=== PATIENT | male | born 1950 | race African-American/Black ===

== ENCOUNTER 2019-04-05 12:56 | Inpatient (IN) ==
[2019-04-05] MEDS ORDERED: GEODON IM ONE (13:09)
[2019-04-05] MEDS ORDERED: ATIVAN IM ONE (13:09)
[2019-04-05] MEDS ORDERED: BENADRYL IM ONE (13:09)
[2019-04-05] MEDS ORDERED: STERILE WATER INJ. INJ ONE (13:09)
[2019-04-05] MEDS ORDERED: NS 1,000 ML IV ONE (13:12)
[2019-04-05] MEDS ORDERED: VANCOMYCIN 1 GM/NS 1 GM/250 ML IVPB IV ONE (13:12)
[2019-04-05] MEDS ORDERED: LASIX IV ONE (13:12)
[2019-04-05] MEDS ORDERED: CLINDAMYCIN 900 MG/NS 900 MG/50 ML IVPB IV ONE (13:20)
[2019-04-05] MEDS ORDERED: CLINDAMYCIN 900 MG/D5W 900 MG/50 ML IVPB IV ONE (14:00)
[2019-04-05 14:26] LABS: BASO# 0.04 X1000 (0.0-0.2); BASO% 0.5 % (0.0-0.8); EOS# 0.25 X1000 (0.0-0.7); EOS% 2.9 % (0.0-10.0); HEMATOCRIT 41.7 % (42.0-52.0); HEMOGLOBIN 14.2 g/dL (14.0-18.0); IMM GRAN# 0.02 X1000 (0.0-0.04); IMM GRAN% 0.2 % (0.0-0.5); LYMPH# 1.87 X1000 (1.2-3.4); LYMPH% 21.5 % (20.5-51.1); MCH 27.7 PG (27-31); MCHC 34.1 g/dL (33-37); MCV 81.3 FL (81-99); MONO# 0.79 X1000 (0.11-0.59); MONO% 9.1 % (1.7-9.3); MPV 9.8 FL (7.4-10.4); NEUT# 5.74 X1000 (1.4-6.5); NEUT% 65.8 % (42.2-75.2); PLT 363 X1000 (130-400); RBC 5.13 XMIL (4.7-6.1); RDW 14.5 % (11.5-14.5); WBC 8.71 X1000 (4.8-10.8)
[2019-04-05 14:31] LABS: INR 1.07; PROTIME 14.4 Seconds (11.0-16.0)
--- NOTE | 2019-04-05 14:37 | Diag Imaging Result Doc PS360 ---
EXAM: CHEST-PORTABLE 04/05/2019 HISTORY: tachycardic TECHNIQUE: AP portable at 1440 COMMENT: The inspiration is less optimal than on 04/04/2019 at 1153. Considering this there has been no significant change. IMPRESSION: Poor inspiration. Electronically signed by Reji Howell 04/05/2019 2:35 PM
[2019-04-05 15:05] LABS: AGAP 12; ALBUMIN 3.8 g/dL (3.5-5.0); ALKALINE PHOSPHATASE 76 U/L (32-122); BUN 15 mg/dL (8-22); CALCIUM 8.9 mg/dL (8.8-10.2); CHLORIDE 100 mmol/L (98-107); COSMO 279; ESTIMATED GFR > 60; GLUCOSE 109 mg/dL (70-104); GOT 52 U/L (10-34); GPT 47 U/L (10-44); MAGNESIUM 1.9 mg/dL (1.5-2.7); POTASSIUM 3.9 mmol/L (3.5-5.1); SODIUM 139 mmol/L (136-145); TCO2 27 mmol/L (25-35); TOTAL PROTEIN 6.6 g/dL (6.3-8.3)
[2019-04-05 15:15] LABS: CK PROFILE 955 U/L (24-204)
[2019-04-05] MEDS ORDERED: TYLENOL PO PRN (15:16)
[2019-04-05] MEDS ORDERED: ZOFRAN IV PRN (15:16)
--- NOTE | 2019-04-05 15:16 | PROVIDER DOCUMENTATION ---
This chart was entered by Airam Melchor Scribe, acting as scribe for Soham Cleary MD. HPI-Psychological Disorder <Pamela BarraganJaylin - Last Filed: 04/05/19 13:51> - General Source: patient, family, EMS - History of Present Illness-Psych Onset/Duration: reports: 24 hours ago Timing: reports: still present Severity: reports: moderate Situational problems related to:: reports: N/A Psychiatric Complaints: reports: agitated, restlessness Substance Use: reports: none/never Previous psych related hospitalizations?: No Patient arrived by:: EMS called by spouse/family Similar Symptoms Previously?: Yes Recently seen or treated by another doctor?: No <Soham Cleary - Last Filed: 04/05/19 15:16> - General Chief Complaint: Edema Stated Complaint: psych/bee sting Time Seen by Provider: 04/05/19 13:09 Allergies/Adverse Reactions: Patient Allergies Allergy/AdvReac Type Severity Reaction Status Date / Time No Known Allergies Allergy Verified 04/04/19 11:16 - History of Present Illness-Psych Nature of Presenting Problem: 68 y/o male presents to ED with fredy and bilateral lower extremity edema onset yesterday. Pt reports he was stung by bees. EMS states he was evicted from his hotel room just prior to arrival. Pt is alert and oriented. (Soham Cleary) Review of Systems - Adult - REVIEW OF SYSTEMS - ADULT Constitutional: denies: chills, fever Eyes: reports: no symptoms reported Ears, Nose, Mouth & Throat: reports: no symptoms reported Cardiovascular: denies: chest pain, palpitations Respiratory: denies: cough, shortness of breath Gastrointestinal: denies: abdominal pain, diarrhea, nausea, vomiting Genitourinary: reports: no symptoms reported Musculoskeletal: reports: other (bilateral lower extremity edema). denies: back pain, joint pain Integumentary: reports: no symptoms reported Neurological: denies: dizziness/vertigo, seizure Psychiatric: reports: other (restless; manic). denies: suicidal thoughts Endocrine: reports: no symptoms reported Hematologic/Lymphatic: reports: no symptoms reported Allergic/Immunologic: reports: no symptoms reported All Other Systems: Reviewed and Negative <Soham Cleary - Last Filed: 04/05/19 15:16> Past History - Adult - PAST MEDICAL HISTORY-ADULT Review of Records: reports: Old Records Reviewed, Nursing Assessment Review, Medications Reviewed Major Childhood Illnesses: reports: denies history Cardiovascular: reports: HTN Psychiatric: reports: bipolar - PRIOR SURGERIES/PROCEDURES Surgical/Procedure History: reports: none - IMMUNIZATION STATUS Childhood Immunizations: See Nurse Assessment Flu Vaccine: See Nurse Assessment - FAMILY HISTORY Family History: reviewed, not pertinent - SOCIAL HISTORY Smoking: non-smoker Substance Use: none/never Alcohol Use Frequency: never Living Situation: alone <Soham Cleary - Last Filed: 04/05/19 15:16> Physical Exam-Psych Focus - Physical Exam-Psych Initial Vital Signs Reviewed: Yes Appearance: appropriate appearance, neat, no apparent distress, no memory impairment, alert, other (restless; manic; labile behavior) Neurological: alert, padded box sewer II-XII nml as tested, oriented x 3, other (restless; manic; labile behavior) Behavior/Eye Contact/Speech: good eye contact, increased rate of speech, other (restless; manic; labile behavior) Thoughts/Hallucinations: normal thought pattern, delusions, flight of ideas, paranoid HENMT: normocephalic/atraumatic, moist mucous membranes, normal ENT inspection Neck: non-tender, full range of motion Respiratory: chest non-tender, lungs clear, normal breath sounds Cardiovascular: tachycardia Abdominal Exam: normal bowel sounds, non tender, soft, hernia (umbilical) Back Exam: normal inspection, no CVA tenderness Extremity: normal range of motion, normal gait, erythema (bilateral lower extremities), swelling (3-4+ edema of bilateral lower extremities), tenderness (bilateral lower extremities), other (blisters to bilateral lower extremities) Integumentary: normal color, warm/dry, erythema (bilateral lower extremities), swelling (3-4+ edema of bilateral lower extremities), tenderness (bilateral lower extremities), other (blisters to bilateral lower extremities) <Soham Cleary - Last Filed: 04/05/19 15:16> Progress - REASSESSMENT Reassessment #1 Time Reassessed: 13:51 (evaluated at bedside. pt has flight of ideas, tangental thoughts, talkative. pt AOx3, however incooperative and screaming at times. HR tachycardic, and lower legs b/l pitting edema with severe skin cellulitis. pt needs inpatient medical floor and additional psych evaluation and managemetn for his fredy. ) <Pamela Barragan - Last Filed: 04/05/19 13:51> - PLAN OF CARE/RESULTS Result Diagrams: 04/05/19 13:53 04/05/19 13:53 - REASSESSMENT Reassessment #2 Time Reassessed: 15:15 Status: improving (resting, sedated. Family states they are applying for greens tier ordered probate tomorrow.) - PSYCHIATRIC Medically clear for psych eval and/or transfer to [facility] No (Will need IV abx for cellulitis prior to psych transfer) - XRAY 1 XRAY Study: Chest Impression: Abnormal (COMMENT: The inspiration is less optimal than on 04/04/2019 at 1153. Considering this there has been no significant change. IMP RESSION: Poor inspiration. Electronically signed by Reji Howell 04/05/2019 2:35 PM) - CONSULTS/PCP/HOSPITALIST Notification #1 *Consult/PCP/Hospitalist*: Dr. Dietz Time Discussed: 15:14 Reason/Comments: Cellulitis of bilateral lower extremities Consult Disposition: Admit <Soham Cleary - Last Filed: 04/05/19 15:16> - PLAN OF CARE/RESULTS Progress/Plan/Lab Results: Vital Signs - 8 hr 04/05/19 12:51 04/05/19 14:30 Temperature 98.4 F Pulse Rate 103 H 108 H Respiratory Rate 20 18 Blood Pressure 163/102 131/100 O2 Sat by Pulse Oximetry 97 94 L Laboratory Results - last 24 hr 04/05/19 04/05/19 04/05/19 13:53 13:53 13:53 WBC 8.71 RBC 5.13 Hgb 14.2 Hct 41.7 L MCV 81.3 MCH 27.7 MCHC 34.1 RDW Std Deviation 14.5 Plt Count 363 MPV 9.8 Immature Gran % (Auto) 0.2 Neut % (Auto) 65.8 Lymph % (Auto) 21.5 Eaton % (Auto) 9.1 Eos % (Auto) 2.9 Baso % (Auto) 0.5 Immature Gran # (Auto) 0.02 Neut # (Auto) 5.74 Lymph # (Auto) 1.87 Eaton # (Auto) 0.79 H Eos # (Auto) 0.25 Baso # (Auto) 0.04 PT INR Sodium 139 Potassium 3.9 Chloride 100 Carbon Dioxide 27 Anion Gap 12 BUN 15 Creatinine 1.0 Estimated GFR/1.73 m2 > 60 BUN/Creatinine Ratio 15 Glucose 109 H Calculated Osmolality 279 Calcium 8.9 Magnesium 1.9 Total Bilirubin 0.80 AST 52 H ALT 47 H Alkaline Phosphatase 76 Creatine Kinase 955 H Troponin T Total Protein 6.6 Albumin 3.8 Globulin 3.0 Albumin/Globulin Ratio 1.0 Plasma Lactate Plasma/Serum Ethyl Alc 04/05/19 04/05/19 04/05/19 13:53 13:53 13:53 WBC RBC Hgb Hct MCV MCH MCHC RDW Std Deviation Plt Count MPV Immature Gran % (Auto) Neut % (Auto) Lymph % (Auto) Eaton % (Auto) Eos % (Auto) Baso % (Auto) Immature Gran # (Auto) Neut # (Auto) Lymph # (Auto) Eaton # (Auto) Eos # (Auto) Baso # (Auto) PT 14.4 INR 1.07 Sodium Potassium Chloride Carbon Dioxide Anion Gap BUN Creatinine Estimated GFR/1.73 m2 BUN/Creatinine Ratio Glucose Calculated Osmolality Calcium Magnesium Total Bilirubin AST ALT Alkaline Phosphatase Creatine Kinase Troponin T 0.018 Total Protein Albumin Globulin Albumin/Globulin Ratio Plasma Lactate 1.6 Plasma/Serum Ethyl Alc Orders Category Date Time Status Finger Stick Blood Sugar (ED) DIRECTED Care 04/05/19 13:10 Active Nursing- Obtain EKG once Care 04/05/19 13:10 Active Saline Loc NOW Care 04/05/19 13:10 Active CHEST-PORTABLE [RAD] Stat Exams 04/05/19 13:11 Completed ALCOHOL BLOOD Stat Lab 04/05/19 13:53 Completed BLOOD CULTURE [BLDCUL] Stat Lab 04/05/19 13:10 Ordered CBC WITH ELECTRONIC DIFF [HEME] Stat Lab 04/05/19 13:53 Results CK PROFILE [SP CHEM] Stat Lab 04/05/19 13:53 Results COMPREHENSIVE METABOLIC PANEL [CHEM] Stat Lab 04/05/19 13:53 Results LACTATE, PLASMA [CHEM] Stat Lab 04/05/19 13:53 Completed MAGNESIUM [CHEM] Stat Lab 04/05/19 13:53 Results PRO B-NATRIURETIC PEPTIDE Stat Lab 04/05/19 13:53 Received PROTIME WITH INR [COAG] Stat Lab 04/05/19 13:53 Completed SED RATE [HEME] Stat Lab 04/05/19 13:53 Results TROPONIN T Stat Lab 04/05/19 13:53 Completed TSH Stat Lab 04/05/19 13:[address] W/POSS RFLX CULT [URINALYSIS] Stat Lab 04/05/19 14:55 Received URINE DRUG SCREEN PL Stat Lab 04/05/19 14:55 Received 0.9% Sodium Chloride Inj [Ns] 1,000 ml Med 04/05/19 13:12 Discontinued IV 999 mls/hr Clindamycin 900 mg/D5w Med 04/05/19 14:00 Discontinued 900 mg in 50 ml IV NOW Diphenhydramine [Benadryl] Med 04/05/19 13:09 Discontinued 50 mg IM NOW ONE Furosemide [Lasix] Med 04/05/19 13:12 Discontinued 40 mg IV NOW ONE Lorazepam [Ativan] Med 04/05/19 13:09 Discontinued 2 mg IM NOW ONE Vancomycin 1 gm/Ns Med 04/05/19 13:12 Discontinued 1 gm in 250 ml IV NOW Water, Sterile Inj [Sterile Water Inj] Med 04/05/19 13:09 Discontinued 1.2 ml INJ NOW ONE Ziprasidone [Geodon] Med 04/05/19 13:09 Discontinued 20 mg IM NOW ONE EKG [EKG] Stat Ther 04/05/19 13:10 Ordered - PSYCHIATRIC Psych patient progress: Patient's judgement is definitely impaired, he is manic, and has not slept in days. I will hold him against his will at the advisement of his family who request psychiatric stabilization prior to discharge. I have asked Dr. Barragan to see patient for 2 doctor hold until cleared by psychiatry. (Soham Cleary) Departure <Pamela Barragan - Last Filed: 04/05/19 13:51> - Departure Date of Disposition Decision: 04/05/19 Time of Disposition Decision: 15:14 Certified Medical Emergency: Emergent - Critical Care Note This patient required my direct & personal management of CC.: No <Soham Cleary - Last Filed: 04/05/19 15:16> - Departure DIAGNOSIS: Cellulitis of both feet, Bipolar affective, manic, severe w/ psych, Pedal edema Disposition: ADMITTED INPATIENT 09 Condition: Fair Attestation - Physician/ ABRAHAM Attestation Patient care was provided by Advanced Practice Provider:: No The physician spent face to face time with patient:: Yes Advanced Practice Provider documentation review:: Supervising physician onsite and consulted in the evaluation and care of this patient. The physician did have a face to face encounter with the patient. <Soham Cleary - Last Filed: 04/05/19 15:16> This chart was documented by the indicated scribe, (Airam Melchor Scribe) and accurately reflects the services I performed and decisions made by Evin handy Kent A., MD, as attested by the provider's signature.
[2019-04-05 15:20] LABS: BILIRUBIN URINE NEGATIVE (NEGATIVE); BLOOD URINE 4+ (NEGATIVE); CLARITY SL. CLOUDY (CLEAR); COLOR YELLOW; GLUCOSE URINE NEGATIVE (NEGATIVE); KETONE URINE NEGATIVE (NEGATIVE); LEUKOCYTES URINE NEGATIVE (NEGATIVE); NITRITE URINE NEGATIVE (NEGATIVE); PROTEIN URINE NEGATIVE (NEGATIVE); UROBILINOGEN URINE NORMAL
[2019-04-05 15:26] LABS: URINE RBC TNTC /HPF (<10); URINE SOURCE CATH
[2019-04-05 15:28] LABS: UR AMPHETAMINES QUAL NONE DETECTED (NONE DETECT); UR BARBITUATES QUAL NONE DETECTED (NONE DETECT); UR BENZODIAZEPIN QUAL NONE DETECTED (NONE DETECT); UR CANNABINOIDS QUAL NONE DETECTED (NONE DETECT); UR COCAINE QUAL NONE DETECTED (NONE DETECT); UR METHADONE QUAL NONE DETECTED (NONE DETECT); UR METHAMPHETAMINE QUAL NONE DETECTED (NONE DETECT); UR OPIATES QUAL NONE DETECTED (NONE DETECT); UR OXYCODONE QUAL NONE DETECTED (NONE DETECT); UR PCP QUAL NONE DETECTED (NONE DETECT); UR PROPOXYPHENE QUAL NONE DETECTED (NONE DETECT); UR TCA QUAL NONE DETECTED (NONE DETECT)
[2019-04-05 15:31] LABS: SED RATE 10 mm/hr (0-15)
[2019-04-05 15:44] LABS: CK-MB 9.36 ng/mL (0.0-5.0)
--- NOTE | 2019-04-05 16:06 | EKG Report ---
Test Performed on : 04/05/2019 3:21:38 PM Test Reason : tachycardia Blood Pressure : / mmHG Vent. Rate : 106 BPM Atrial Rate : 106 BPM P-R Int : 172 ms QRS Dur : 088 ms QT Int : 362 ms P-R-T Axes : 048 012 046 degrees QTc Int : 480 ms Sinus tachycardia. Otherwise normal ECG When compared with ECG of 04-APR-2019 11:20, (Unconfirmed) Criteria for Inferior infarct are no longer present Unconfirmed Result
[2019-04-05] MEDS: BENADRYL IV PRN (19:45)
[2019-04-05] MEDS: ATIVAN IV PRN (19:45)
--- NOTE | 2019-04-05 20:16 | HISTORY AND PHYSICAL ---
CHIEF COMPLAINT: Cellulitis. 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 He has a known history of bipolar, he was brought to the ER with bilateral lower extremity swelling and edema and was diagnosed with cellulitis yesterday. He was discharged home. He reports is being stung by bees. However unfortunately he has been evicted from his hotel room just prior to arrival today. Patient is alert, oriented, quite agitated and somewhat animated. He has a known history of bipolar and the family notes that he has not slept 4 or 5 days. The family notes that they are planning on going forward with a court hold to get him some help. REVIEW OF SYSTEMS: As noted on the ER record is Mr. Ferguson currently is sedated from Geodon and Ativan that he has had earlier. He denies any fevers, cough, congestion. Denies chest pains, palpitations. Does have bilateral lower extremity pain and swelling. Denies any diarrhea, constipation. Denies GI or issues otherwise. Denies any suicidal thoughts. Denies chest pain, palpitations, vertigo, dizziness. ALLERGIES: No known drug allergies. MEDICATIONS: I do not have an accurate medication list currently. PAST MEDICAL HISTORY: Hypertension, bipolar. SOCIAL HISTORY: Patient is a nonsmoker. Does not drink. He is retired. FAMILY HISTORY: Noncontributory. PHYSICAL: Vital Signs: Reviewed. He is afebrile. Blood pressure stable, heart rate 80s, respiratory 20. General: Patient currently is somnolent and sedated secondary to Geodon and Ativan he had earlier. Upon initial presentation to the ER he was restless, manic, labile behavior. He was alert, oriented x3. He had increased rate of speech, was agitated. He had paranoid thought processes as well as flight of ideas. HEENT: Normocephalic, atraumatic. JUVENCIO. Neck: Supple. CV: Regular rate. Chest: Clear, nonlabored. No wheezing. No crackles. Abdomen: Soft, nondistended, nontender. Extremities: He has 3+ edema in his bilateral lower extremities with blisters to his bilateral lower extremities, increased warmth, increased tenderness and erythema of the bilateral lower extremities. Neuro: Unable to assess due to patient being sedated of Geodon and Ativan. LABS: CBC, CMP essentially normal. ASSESSMENT: 1. Cellulitis bilateral lower extremities. 2. Bipolar affect with fredy with psychotic features. 3. Pedal edema. PLAN: Unfortunately, a court hold had to be placed on Mr. Ferguson as he needs IV antibiotics for his lower extremity edema and then will need followup with psychiatry regarding his current manic state with psychotic features. His blood pressures are elevated. We will treat this accordingly in hospital. His family is pursuing a further court hold as well. cc: Elías Dietz MD
[2019-04-05] MEDS: GEODON PO SCH (20:28)
[2019-04-05] MEDS: STERILE WATER INJ. INJ PRN (20:39)
[2019-04-05] MEDS: GEODON IM PRN (20:39)
[2019-04-05] MEDS: CLINDAMYCIN 900 MG/D5W 900 MG/50 ML IVPB IV SCH (22:07)
[2019-04-06] MEDS: ATIVAN IV PRN ×3 (01:20→18:11)
[2019-04-06] MEDS: BENADRYL IV PRN ×3 (01:21→18:12)
[2019-04-06] MEDS: CLINDAMYCIN 900 MG/D5W 900 MG/50 ML IVPB IV SCH ×3 (06:11→22:53)
[2019-04-06] MEDS: GEODON PO SCH ×3 (06:11→20:02)
[2019-04-06] MEDS: GEODON IM PRN ×2 (10:07→19:58)
[2019-04-06] MEDS: STERILE WATER INJ. INJ PRN (10:07)
--- NOTE | 2019-04-06 12:15 | PROGRESS NOTE ---
DATE: 04/06/2019 SUBJECTIVE: Patient has no focal complaints but he is agitated and now he is sedated. OBJECTIVE: Blood pressure 166/99, heart rate of 96, respiratory rate of 24, temperature 97.6 degrees. Cardiovascular: Regular rate and rhythm. Pulmonary: Bilateral breath sounds clear to auscultation. GI was soft, nontender, nondistended. Lower Extremities: He has got some redness on both legs; reportedly though, less. There is less edema and less irritation. Laboratory Data: Nothing new today but he had no white count. PROBLEM LIST: 1. Cellulitis of the legs, bilateral. He is on intravenous clindamycin. Seems to be doing okay. 2. History of bipolar with psychotic features with active fredy, possibly active psychosis. He will need inpatient psychiatric evaluation. I think he is stable for discharge, although right now, if required, we will get them to evaluate in the morning, see how things look, or if he wakes up today. 3. Disposition pending inpatient psychiatric evaluation and resolution of his acute episodes and then we will decide about long-term treatment. cc: MD Elías Griffiths MD
[2019-04-07] MEDS: BENADRYL IV PRN ×3 (00:13→21:41)
[2019-04-07] MEDS: ATIVAN IV PRN ×3 (00:13→21:41)
[2019-04-07] MEDS ORDERED: LABETALOL IV PRN (06:11)
[2019-04-07] MEDS: CLINDAMYCIN 900 MG/D5W 900 MG/50 ML IVPB IV SCH (06:50)
[2019-04-07] MEDS: LABETALOL IV PRN ×2 (06:59→18:43)
[2019-04-07 07:13] LABS: BASO# 0.03 X1000 (0.0-0.2); BASO% 0.5 % (0.0-0.8); EOS# 0.34 X1000 (0.0-0.7); EOS% 5.3 % (0.0-10.0); HEMATOCRIT 42.9 % (42.0-52.0); HEMOGLOBIN 14.4 g/dL (14.0-18.0); IMM GRAN# 0.01 X1000 (0.0-0.04); IMM GRAN% 0.2 % (0.0-0.5); LYMPH# 1.24 X1000 (1.2-3.4); LYMPH% 19.5 % (20.5-51.1); MCH 27.3 PG (27-31); MCHC 33.6 g/dL (33-37); MCV 81.4 FL (81-99); MONO# 0.72 X1000 (0.11-0.59); MONO% 11.3 % (1.7-9.3); MPV 9.7 FL (7.4-10.4); NEUT# 4.02 X1000 (1.4-6.5); NEUT% 63.2 % (42.2-75.2); PLT 358 X1000 (130-400); RBC 5.27 XMIL (4.7-6.1); RDW 14.5 % (11.5-14.5); WBC 6.36 X1000 (4.8-10.8)
[2019-04-07 07:28] LABS: AGAP 12; BUN 16 mg/dL (8-22); CALCIUM 8.4 mg/dL (8.8-10.2); CHLORIDE 103 mmol/L (98-107); COSMO 283; ESTIMATED GFR > 60; GLUCOSE 75 mg/dL (70-104); POTASSIUM 3.8 mmol/L (3.5-5.1); SODIUM 142 mmol/L (136-145); TCO2 28 mmol/L (25-35)
[2019-04-07] MEDS ORDERED: CATAPRES PO ONE (08:58)
[2019-04-07 09:39] LABS: AGAP 15; ALBUMIN 3.4 g/dL (3.5-5.0); ALKALINE PHOSPHATASE 66 U/L (32-122); BUN 17 mg/dL (8-22); CALCIUM 8.6 mg/dL (8.8-10.2); CHLORIDE 102 mmol/L (98-107); COSMO 283; ESTIMATED GFR > 60; GLUCOSE 75 mg/dL (70-104); GOT 52 U/L (10-34); GPT 33 U/L (10-44); POTASSIUM 4.4 mmol/L (3.5-5.1); SODIUM 142 mmol/L (136-145); TCO2 26 mmol/L (25-35); TOTAL PROTEIN 6.4 g/dL (6.3-8.3)
[2019-04-07 09:58] LABS: FREE T4 1.36 ng/dL (0.93-1.70)
[2019-04-07] MEDS: CATAPRES-TTS-1 TD SCH ×3 (10:26→11:39)
[2019-04-07] MEDS: GEODON PO SCH ×2 (10:46→11:29)
[2019-04-07] MEDS: STERILE WATER INJ. INJ PRN (11:11)
[2019-04-07] MEDS ORDERED: PRINZIDE 20/12.5MG PO SCH (11:15)
[2019-04-07] MEDS: CLEOCIN PO SCH ×3 (11:23→20:02)
[2019-04-07] MEDS: PRINIVIL PO SCH (11:25)
[2019-04-07] MEDS: HYDROCHLOROTHIAZIDE PO SCH (11:25)
--- NOTE | 2019-04-07 12:34 | Diag Imaging Result Doc PS360 ---
EXAM: CT HEAD W/O CONTRAST 04/07/2019 HISTORY: DMW assessment TECHNIQUE: This exam was performed using automated exposure control, adjustment of mA or kV according to patient size, and/or use of iterative reconstruction technique. COMMENT: There are no previous studies available for comparison. There is some patchy lucency present in the periventricular white matter bilaterally particularly in the frontal lobes. There is no evidence of mass effect, bleed, or abnormal extra-axial fluid collection. The visualized paranasal sinuses are clear. The calvarium is intact. IMPRESSION: Chronic ischemic microvascular white matter disease. No evidence of acute disease. Electronically signed by Reji Howell 04/07/2019 12:31 PM
--- NOTE | 2019-04-07 13:10 | PROGRESS NOTE ---
DATE: 04/07/2019 SUBJECTIVE: The patient is very agitated today. He keeps on asking for his papers. He wants to go home. He does not think he has any issues. He states he was not kicked out of his apartment. OBJECTIVE: Blood pressure is 172/91, heart rate 87, respiratory 18, temperature 97.8 degrees and 98% on room air. Cardiovascular: Regular rate and rhythm. Pulmonary: Bilateral breath sounds. Clear to auscultation. GI: Soft, nontender, and nondistended. Bowel sounds are positive. LABORATORY DATA: White count is 6, hemoglobin and hematocrit 14 and 42, platelets 358,000. Basic was normal. AST of 52. RPR was negative. PROBLEM LIST: 1. Cellulitis of the legs. Clinically, he has improved. He has been refusing p.o. medications, but we will switch him to p.o. clindamycin. 2. Bipolar, psychosis, manic episode. The patient does not feel he has any psychiatric issues. Reportedly, he does have a history of bipolar. He was here on the , but then he came back on the . He was a critical care physician. He has flight of ideas and inappropriate with the nursing staff. There is documentation he was disconnecting his fluids, and that he was urinating on the floor. He was treated for cellulitis. He is tachycardic. I guess he came back the next day, stung by bees. Apparently, he was evicted from his hotel room, which he says he is not. He is alert and oriented, but then he was extremely flight of ideas, tangential thoughts, talkative, uncooperative, and screams at times. He had cellulitis. He was admitted for treatment for that process. Now, he is asking to go home or to be discharged, which I do not know if he quite has that. I would say he is manic. He has not slept in several days, and he was admitted for treatment. PROBLEMS: 1. I do think he has bipolar with active fredy. I do not think he is able to make decisions. He seems a bit more with it because he is asking appropriate questions, but he denies he has any psychiatric issues. He wants his papers from the ambulance. We discussed what they were, and they described him to be very manic. I do think he needs inpatient psychiatric treatment. I do not think he is going to be safe to go home without treatment. He just refuses to participate. He does not want to take any medications by mouth, which I think is his psychiatric medicines. I think he is concerned that he will be getting psychiatric medications that is why he has been refusing p.o. [facility] has been gracious enough to evaluate him, and they would like a head CT and certain other tests which I think is very reasonable. We are pursuing that. I am going to switch him to Risperdal, and see if he may take that a little bit better. He has been getting intermittent Geodon. 2. Cellulitis of the legs that is stable. He has agreed to go on p.o. antibiotics. He will take oral antibiotics, and he has taken them. 3. Hypertension which is not well controlled. I have started a clonidine patch. He has agreed to go back on lisinopril hydrochlorothiazide. He has been on that before. 4. Disposition: Hopefully inpatient psych. He has been a court hold. We are looking at extending that at this point. I do think he should be a court hold, but I do not have all the data at this point concerning that. I do think he will need inpatient treatment. 5. Positive blood culture - it should be noted pt had 1/2 blood culture for coag negative staph; which is likely a contaminant; additionally repeat blood cultures from 04/05 were No growth; therefore this is not an active issue that should preclude him from psych transfer cc: MD Elías Griffiths MD MTDD
[2019-04-07] MEDS: CULTURELLE PO SCH ×2 (16:47→16:59)
[2019-04-07 17:01] LABS: VITAMIN D 25 HYDROXY 17.2 NG/DL
[2019-04-07] MEDS: RISPERDAL M-TAB PO SCH (20:02)
[2019-04-08] MEDS: CLEOCIN PO SCH (08:46)
[2019-04-08] MEDS: CULTURELLE PO SCH (08:47)
[2019-04-08] MEDS: PRINIVIL PO SCH (08:47)
[2019-04-08] MEDS: HYDROCHLOROTHIAZIDE PO SCH (08:47)
[2019-04-08] MEDS: RISPERDAL M-TAB PO SCH (08:48)
[2019-04-08] MEDS: GEODON IM PRN (10:37)
[2019-04-08] MEDS: STERILE WATER INJ. INJ PRN (10:37)
[2019-04-08] MEDS: ATIVAN IV PRN (11:13)
[2019-04-08 11:16] VITALS: BP 137/75
--- NOTE | 2019-04-09 04:08 | DISCHARGE SUMMARY ---
ADMISSION DATE: 04/05/2019 DISCHARGE DATE: 04/08/2019 PRIMARY CARE PHYSICIAN: None. ADMISSION DIAGNOSES: 1. Cellulitis of bilateral lower extremities. 2. Bipolar affect with fredy with psychotic features. 3. Pedal edema. DISCHARGE DIAGNOSES: 1. Bilateral lower extremity cellulitis of legs, improving. 2. Bipolar with active fredy with psychotic features. 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 Had been diagnosed with cellulitis the day prior and discharged home. Now reports being stung by bees. However, he was apparently evicted from a hotel room just prior to arriving to the emergency room. He was alert and oriented but quite agitated and somewhat animated when he arrived to the emergency room. Has a known history of bipolar. Family noted that he had not slept in 4 to 5 days. They moved forward with getting a court hold that was placed, but he needed IV antibiotics for the lower extremity cellulitis and then he would be able to receive his psychiatric treatment. His cellulitis has improved, but he is going to require completion of clindamycin 300 mg p.o. t.i.d. for another 5 days. It was felt that he was not able to make appropriate decisions. He continues to be very manic and it is felt that he does need inpatient psychiatric treatment. A court hold has continued and it is now felt that he can safely be discharged for psychiatric inpatient treatment at [facility]. DISCHARGE MEDICATIONS: 1. Clindamycin 300 mg p.o. t.i.d. x5 more days. 2. Catapres TTS-1 1 transdermally q.7 days. 3. Culturelle 1 p.o. t.i.d. 4. Prinivil 20 mg p.o. daily. 5. Risperidone M Tab 1 mg p.o. b.i.d. 6. Geodon 20 mg IM q.6 hours p.r.n. TIME: A 33 minute discharge. Dictated by DADA Mchugh for Eduardo Hurt MD cc: DADA Mchugh MD Gregory S. Cheatham, MD
--- NOTE | 2019-04-09 09:52 | DISCHARGE SUMMARY ---
ADMISSION DATE: 04/05/2019 DISCHARGE DATE: 04/08/2019 The patient day of discharge, he is doing better. His mental status has improved. He is much more resilient. I asked him about his career. 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 I really do not know the circumstances of why he stopped. He says he retired, which is possible. He is 68. He said he worked for 30 years, but could be extenuating circumstances, but in any case, he seems better. He had a couple episodes of crying. PHYSICAL EXAMINATION: Vital Signs: His blood pressure currently 145/101, heart rate 89, respiratory rate 26, temperature 97.9 degrees. His physical exam is unremarkable. Cardiovascular: Regular rate and rhythm. PROBLEMS: 1. Bipolar. Again, I do not think he is refusing any medications. I am not sure if he took the Risperdal last night, but he is taking his antihypertensives. He is taking several other medications. 2. Hypertension. He is on lisinopril. He is on hydrochlorothiazide, apparently outpatient medications and we have started a clonidine patch. I would use clonidine intermittently per medical service at [facility]. The patch will start to be most effective in the next day or 2 and he may need an occasional supplementation, but overall his blood pressure is improved. 3. Cellulitis, is improved. He is on clindamycin. I would continue that for another 5 days or so. He has been on it since the . 4. Bipolar, will be per [facility]. He is being transferred there for further management. cc: MD Elías Griffiths MD
[2019-04-09 10:13] LABS: HEPATITIS PROFILE ACUTE SEE COMMENTS
== END 2019-04-08 12:25 | DRG 603 ==
LOC: P.ED 12:56 → SUATTDRO 16:07 → P.ICU 16:07
PROVIDERS: ADMIT Family Medicine; ATTEND Internal Medicine
CPT/HCPCS: 36415; 51701; 70450; 71010; 71020; 71045; 71046; 80048; 80053; 80074; 80101; 80104; 80301; 80305; 80307; 80320; 80324; 80345; 80346; 80353; 80358; 80361; 80365; 81001; 82055; 82306; 82550; 82553; 82607; 82746; 83605; 83735; 83880; 83992; 84439; 84443; 84484; 85025; 85610; 85651; 86592; 87040; 93005; 96365; 96366; 96372; 96374; 96375; 99284; 99285; 99291; A9270; G0431; G0434; G0477; G0479; G0480; G6040; J0696; J1200; J1940; J2060; J3370; J3486; J7030; P9612; S0077